=== PATIENT | male | born 1970 | race Two or more races ===

== ENCOUNTER 2019-11-20 08:35 | Emergency (ER) | payer OTHER ==
[~2019-11-20] VITALS: Ht 170.2 cm; Wt 125.2 kg
[2019-11-20] MEDS ORDERED: EFFEXOR XR150 MG (08:50)
[2019-11-20] MEDS ORDERED: LOSARTAN POTASS50 MG (08:51)
== END 2019-11-20 15:00 | disposition home or self-care (01) ==
LOC: ER 08:35
DX: K62.5 Hemorrhage of anus and rectum (principal)

== ENCOUNTER → 2020-01-20 06:19 | Outpatient (CLI) | payer OTHER ==
[~2020-01-20 06:19] MED LIST: EFFEXOR XR150 MG; LOSARTAN POTASS50 MG
== END | disposition home or self-care (01) ==
LOC: LAB 06:19
PROVIDERS: ATTEND Internal Medicine Hematology & Oncology
DX: D50.8 Other iron deficiency anemias (principal); R79.89 Other specified abnormal findings of blood chemistry; I10 Essential (primary) hypertension; R74.02 Elevation of levels of lactic acid dehydrogenase [LDH]; K76.89 Other specified diseases of liver; E03.8 Other specified hypothyroidism; R97.0 Elevated carcinoembryonic antigen [CEA]; R97.8 Other abnormal tumor markers; R97.20 Elevated prostate specific antigen [PSA]; D51.1 Vitamin B12 deficiency anemia due to selective vitamin B12 malabsorption with proteinuria; D51.0 Vitamin B12 deficiency anemia due to intrinsic factor deficiency; E06.3 Autoimmune thyroiditis; D68.8 Other specified coagulation defects; D69.1 Qualitative platelet defects; Z86.010 Personal history of colon polyps; K63.5 Polyp of colon; K59.09 Other constipation; F06.31 Mood disorder due to known physiological condition with depressive features; K57.31 Diverticulosis of large intestine without perforation or abscess with bleeding; G47.33 Obstructive sleep apnea (adult) (pediatric)

== ENCOUNTER 2020-01-20 07:34 | Outpatient (CLI) | payer OTHER | END 2020-01-20 07:40 | disposition home or self-care (01) | LOC: SONOGRAMA 07:34 → MAMO-SONO 08:15 | PROVIDERS: ATTEND Internal Medicine Hematology & Oncology | DX: E04.2 Nontoxic multinodular goiter (principal); D68.8 Other specified coagulation defects; Z86.010 Personal history of colon polyps; K63.5 Polyp of colon; K59.09 Other constipation; F06.31 Mood disorder due to known physiological condition with depressive features; K57.31 Diverticulosis of large intestine without perforation or abscess with bleeding; G47.33 Obstructive sleep apnea (adult) (pediatric) ==